=== PATIENT | female | born 1945 | race Caucasian/White ===

== ENCOUNTER → 2016-12-03 | Outpatient (CLI) | payer MEDICARE ==
--- NOTE | 2016-12-03 16:29 | CARD ---
APPROVED REPORT EXAM: Two-dimensional and M-mode echocardiogram with Doppler and color Doppler. Other Information Quality : Average Rhythm : Atrial Fibrillation INDICATION Atrial Fibrillation 2D DIMENSIONS RVDd2.2 (2.9-3.5cm)Left Atrium(2D)4.0 (1.6-4.0cm) IVSd1.0 (0.7-1.1cm)Aortic Root(2D)3.0 (2.0-3.7cm) LVDd4.8 (3.9-5.9cm)LVOT Diameter2.0 (1.8-2.4cm) PWd1.0 (0.7-1.1cm)LVDs3.4 (2.5-4.0cm) FS (%) 29.6 %SV60.8 ml LVEF(%)56.5 (>50%) Aortic Valve AoV Peak Marc.133.6cm/sAoV VTI24.5cm AO Peak GR.7.1mmHgLVOT Peak Marc.114.2cm/s AO Mean GR.4mmHgAVA (VMAX)2.62cm2 RAQUEL (VTI)2.70cm2 Mitral Valve MV E Ysldqmcj974.8cm/sMV E Peak Gr.6mmHg MV DECEL [id number] A Velocity1.7cm/s MV E Mean Gr.3mmHgMV RLI19yi E/A Ratio66.4MVA (PHT)4.36cm2 Tricuspid Valve TR P. Odqovxtc521yo/sRAP JNCVELJQ2uyWl TR Peak Gr.03uqAoYAPH90eiQo LEFT VENTRICLE The left ventricle is normal size. There is normal left ventricular wall thickness. Left ventricle sy stolic function is normal. The Ejection Fraction is 55-60%. There is normal LV segmental wall motion. Unable to assess diastolic function due to a-fib. RIGHT VENTRICLE The right ventricle is normal size. The right ventricular systolic function is normal. ATRIA The left atrium is mildly dilated. The right atrium size is normal. The interatrial septum is intact with no evidence for an atrial septal defect or patent foramen ovale as noted on 2-D or Doppler imagi ng. AORTIC VALVE The aortic valve is normal in structure and function. The aortic valve is trileaflet. Doppler and Col or Flow revealed no significant aortic regurgitation. There is no significant aortic valvular stenosi s. MITRAL VALVE The mitral valve is normal in structure and function. There is no mitral valve stenosis. Doppler and Color Flow revealed trace mitral valve regurgitation. TRICUSPID VALVE The tricuspid valve is normal in structure and function. Doppler and Color Flow revealed trace tricus pid regurgitation. The PA pressure was estimated at 25 mmHg. There is no tricuspid valve stenosis. PULMONIC VALVE The pulmonic valve is not well visualized. Doppler and Color Flow revealed no pulmonic valvular regur gitation. There is no pulmonic valvular stenosis. GREAT VESSELS The aortic root is normal in size. The IVC is normal in size and collapses >50% with inspiration. PERICARDIAL EFFUSION There is no evidence of significant pericardial effusion. Critical Notification Critical Value: No <Conclusion> Left ventricle systolic function is normal. The Ejection Fraction is 55-60%. There is normal LV segmental wall motion. The left atrium is mildly dilated. Trace tricuspid regurgitation. The PA pressure was estimated at 25 mmHg. There is no evidence of significant pericardial effusion.
== END | disposition home or self-care (01) ==
LOC: ECHO 13:00
PROVIDERS: ATTEND Internal Medicine Cardiovascular Disease
DX: I48.91 Unspecified atrial fibrillation (principal); I34.0 Nonrheumatic mitral (valve) insufficiency; I07.1 Rheumatic tricuspid insufficiency
CPT/HCPCS: 93306

== ENCOUNTER → 2017-03-29 | Outpatient (CLI) | payer MEDICARE ==
--- NOTE | 2017-03-29 16:31 | RAD ---
Ankle-brachial indices, 03/29/2017: History: Claudication Resting ROSALIA measurements were obtained. The right ROSALIA is 1.07, while the left ROSALIA is 1.08. IMPRESSION: Normal resting ROSALIA measurements.
== END | disposition home or self-care (01) ==
LOC: US 15:14
PROVIDERS: ATTEND Family Medicine
DX: I73.9 Peripheral vascular disease, unspecified (principal)
CPT/HCPCS: 93922

== ENCOUNTER → 2017-04-22 | Outpatient (CLI) | payer MEDICARE ==
--- NOTE | 2017-04-22 13:46 | RAD ---
DATE: 04/22/2017 EXAM: DIGITAL DIAGNOSTIC LT HISTORY: Six-month follow-up of nodular density in the left breast. COMPARISON: 10/18/2016 This study was interpreted with the benefit of Computerized Aided Detection (CAD). FINDINGS: CC and MLO digital mammograms of the left breast were obtained. Comparison studies are dated 10/18/2016, 10/22/2016 and 10/13/2015 . The left breast parenchyma is composed of scattered fibroglandular densities which can obscure a lesion on mammography (breast density code B). The asymmetric density is seen within the medial aspect left breast is unchanged. It has a benign appearance. No spiculated mass is noted. Benign-appearing calcifications are seen in the left breast, unchanged. Since the previous examinations there has been no significant interval change. IMPRESSION: Stable mammographic appearance of the benign-appearing asymmetric density within the left breast. I would recharacterize the patient's mammogram as a BIRADS category 2 benign findings with a recommendation for routine yearly screening mammography for follow-up. BI-RADS CATEGORY: 2 BENIGN FINDING(S) RECOMMENDED FOLLOW-UP: 12M 12 MONTH FOLLOW-UP PQRS compliance statement: Patient information was entered into a reminder system with a target due date 10/18/2017 for the next mammogram. Mammography is a sensitive method for finding small breast cancers, but it does not detect them all and is not a substitute for careful clinical examination. A negative mammogram does not negate a clinically suspicious finding and should not result in delay in biopsying a clinically suspicious abnormality. "Our facility is accredited by the [employer] Mammography Program."
== END | disposition home or self-care (01) ==
LOC: MAMMO 13:03
PROVIDERS: ATTEND Family Medicine
DX: R92.8 Other abnormal and inconclusive findings on diagnostic imaging of breast (principal); N64.89 Other specified disorders of breast
CPT/HCPCS: G0206; 77065

== ENCOUNTER 2017-04-29 07:57 | Outpatient (CLI) | payer MEDICARE ==
[2017-04-29] VITALS (9 sets, daily range): BP systolic 151–192; BP diastolic 63–74
[~2017-04-29] VITALS: Ht 166.4 cm; Wt 95.3 kg
[2017-04-29 08:19] LABS: HEMATOCRIT 42.4 % (36.0-47.0); HEMOGLOBIN 13.5 g/dL (12.0-15.5); RED BLOOD COUNT 4.72 x10^6/uL (3.50-5.40); RED CELL DISTRIBUTION WIDTH 14.8 % (11.5-14.5); WHITE BLOOD COUNT 6.8 x10^3/uL (4.0-11.0)
[2017-04-29 08:31] LABS: PROTHROMBIN TIME PATIENT 12.8 SEC (11.7-14.0)
[2017-04-29 08:32] LABS: CALCIUM 9.1 mg/dL (8.5-10.1); CREATININE 1.1 mg/dL (0.6-1.0); GFR 48.8; POTASSIUM 4.5 mmol/L (3.5-5.1)
[2017-04-29] MEDS ORDERED: LISI1TAB5 PO (08:46)
[2017-04-29] MEDS ORDERED: FLEC100T PO (08:46)
[2017-04-29] MEDS ORDERED: APIX5TAB PO (08:46)
[2017-04-29] MEDS ORDERED: GLUC100018 PO (08:46)
[2017-04-29] MEDS ORDERED: LEVO100T5 PO (08:46)
[2017-04-29] MEDS ORDERED: ASPI-482 PO (08:46)
[2017-04-29] MEDS ORDERED: DOCU-150 PO (08:46)
[2017-04-29] MEDS ORDERED: DIAZ2TAB PO (08:46)
[2017-04-29] MEDS ORDERED: METO50TA2 PO (08:46)
[2017-04-29] MEDS ORDERED: SIMV40TA3 PO (08:46)
[2017-04-29] MEDS ORDERED: MULT-245 PO (08:46)
[2017-04-29] MEDS ORDERED: IODIXANOL 320 MG/ML 100 ML VIAL. ONE (08:51)
[2017-04-29] MEDS ORDERED: LIDOCAINE 2% 20 ML VIAL. ONE (08:51)
[2017-04-29] MEDS ORDERED: HEPARIN for IV BOLUS 10,000 UNIT/10 ML VIAL. ONE (09:10)
[2017-04-29] MEDS ORDERED: fentaNYL PF VIAL 100 MCG/2 ML VIAL ONE ×2 (09:10→09:43)
[2017-04-29] MEDS ORDERED: MIDAZOLAM HCL/PF 2 MG/2 ML VIAL. ONE ×2 (09:10→09:43)
[2017-04-29] MEDS ORDERED: MIDAZOLAM HCL/PF 2 MG/2 ML VIAL. IV ONE (09:30)
[2017-04-29] MEDS ORDERED: LIDOCAINE 1% / SOD BICARB 8.4% 20 ML VIAL. IJ ONE (09:30)
[2017-04-29] MEDS ORDERED: IODIXANOL 320 MG/ML 100 ML VIAL. IART ONE (09:30)
[2017-04-29] MEDS ORDERED: fentaNYL PF VIAL 100 MCG/2 ML VIAL IV ONE (09:30)
[2017-04-29] MEDS ORDERED: IV 1/2 NORMAL SALINE 1,000 ML IV SCH (10:32)
--- NOTE | 2017-04-29 10:32 | PDOC ---
MODERATE SEDATION ASSESSMENT RISKS/ALTERNATIVES Risks/Alternatives Risks and alternatives of this type of sedation and procedure discussed with: RISK/ALTERNATIVES: Patient H & P ON CHART H & P H & P on chart and reviewed for co-morbid conditions and appropriate labs. H&P ON CHART: Yes STATUS PREG STATUS ASSESSED: N/A MEDS/ALLERGIES REVIEWED Meds/Allergies Reviewed Medications and Allergies including time and route of recently administered narcotics and sedatives. MEDS/ALLERGIES REVIEWED: Yes ASA RATING ASA RATING: II AIRWAY ASSESSMENT Airway Assessment Airway patency, oral function limitations, presence of caps, crowns, dentures, partials, and ability to extend neck assessed. AIRWAY ASSESSMENT: Yes MALLAMPATI SCORE MALLAMPATI SCORE: II PRE-SEDATION ASSESSMENT PRE-SEDATION ASSESSMENT: Yes CHRIS GUERRERO MD Apr 29, 2017 10:32
--- NOTE | 2017-04-29 13:40 | CARD ---
APPROVED REPORT Patient StatusOUT-PATIENT Bilingual Student Tutor: Ghulam Ordonez, RT (R) Procedure(s) performed: Aortogram with bilateral lower extremity runoff Sedation time: 27 minutes INDICATION FOR PROCEDURE The indication(s) include : Bilateral claudication. PROCEDURE NARRATIVE After explaining the risks, benefits and alternative options, informed consent was obtained from azeb ent. Patient brought to the cardiac [facility] [facility] and her right groin was prepped and draped in the usual fashion. 20 mL of 2% lidocaine was infiltrated into the skin and subcutaneous tissues for local anest hesia. Arterial access was obtained the right common femoral artery and a 5 Trin[place] sheath was inserte d. 5 Trin[place] pigtail catheter was then used to perform aortogram with bilateral lower extremity runoff . Patient tolerated the procedure well. Hemostasis was achieved using Angio-Seal. There were no immed iate complications. FINDINGS 1. No significant stenosis involving the distal descending aorta, bilateral common and external gemma c arteries. 2. No significant stenosis involving bilateral common femoral and superficial femoral arteries. 3. No significant stenosis involving bilateral popliteal arteries. There is three vessel runoff belo w the knee bilaterally. Conclusion No significant peripheral vascular disease
== END 2017-04-29 12:51 | disposition home or self-care (01) ==
LOC: CCL 07:57
PROVIDERS: ATTEND Internal Medicine Cardiovascular Disease
DX: I70.213 Atherosclerosis of native arteries of extremities with intermittent claudication, bilateral legs (principal); Z79.01 Long term (current) use of anticoagulants; E78.00 Pure hypercholesterolemia, unspecified; I48.91 Unspecified atrial fibrillation; I10 Essential (primary) hypertension; M19.90 Unspecified osteoarthritis, unspecified site; F17.200 Nicotine dependence, unspecified, uncomplicated; Z90.710 Acquired absence of both cervix and uterus; Z88.2 Allergy status to sulfonamides
CPT/HCPCS: 36415; 75630; 80048; 85027; 85610; 85730; 99152; 99153; C1769; C1771; C1892; G0269; J1644; J2250; J3010; Q9967

== ENCOUNTER → 2018-01-17 | Outpatient (CLI) | payer MEDICARE | END | disposition home or self-care (01) | LOC: KCIC MRI 07:45 | DX: S83.242A Other tear of medial meniscus, current injury, left knee, initial encounter (principal); M17.12 Unilateral primary osteoarthritis, left knee; M71.22 Synovial cyst of popliteal space [Baker], left knee; M22.42 Chondromalacia patellae, left knee; M25.462 Effusion, left knee; I10 Essential (primary) hypertension; E78.00 Pure hypercholesterolemia, unspecified; R60.0 Localized edema; X58.XXXA Exposure to other specified factors, initial encounter; Y93.89 Activity, other specified; Y92.89 Other specified places as the place of occurrence of the external cause; Y99.8 Other external cause status | CPT/HCPCS: 73721 ==

== ENCOUNTER → 2018-05-02 | Outpatient (CLI) | payer MEDICARE ==
[2017-04-29 12:00] VITALS: BP 170/67
[~2018-05-02] MED LIST: APIX5TAB PO; ASPI-482 PO; DIAZ2TAB PO; DOCU-150 PO; FLEC100T PO; GLUC100018 PO; LEVO100T5 PO; LISI1TAB5 PO; METO50TA6 PO; MULT-245 PO; SIMV40TA3 PO
--- NOTE | 2018-05-06 08:51 | RAD ---
DATE: 05/02/2018 10:30 AM EXAM: MAMMO EARL SCREENING BILATERAL HISTORY: routine screening evaluation. COMPARISON: 04/22/2017, 10/22/2016, 10/18/2016, 10/13/2015, 10/11/2014, 10/12/2013, 2012, 09/24/2011, 09/22/2010 Bilateral CC and MLO views of the breasts were performed. Bilateral breast tomosynthesis was performed in CC and MLO projections. This study was interpreted with the benefit of Computerized Aided Detection (CAD ). Breast Density: The breast parenchyma shows scattered fibroglandular densities. Breast parenchyma level B. FINDINGS: Benign calcifications are present. Asymmetry is seen in the superior right breast at a posterior depth, not definitively seen on the cc view. No left breast suspicious masses, microcalcifications or architectural distortion is present. The visualized axillae are unremarkable. IMPRESSION: Right breast asymmetry, findings for which additional imaging is advised. BI-RADS CATEGORY: 0 INCOMPLETE: NEEDS ADDITIONAL IMAGING EVALUATION AND/OR PRIOR MAMMOGRAMS FOR COMPARISON. RECOMMENDED FOLLOW-UP: ADD ADDITIONAL IMAGING The patient will be contacted to return for additional imaging and a supplemental report will follow. Recommend spot compression tomographic views and possibly ultrasound. PQRS compliance statement: Patient information was entered into a reminder system with a target due date for the next mammogram. Mammography is a sensitive method for finding small breast cancers, but it does not detect them all and is not a substitute for careful clinical examination. A negative mammogram does not negate a clinically suspicious finding and should not result in delay in biopsying a clinically suspicious abnormality. "Our facility is accredited by the [employer] Mammography Program." MTDD
== END | disposition home or self-care (01) ==
LOC: MAMMO 08:22
PROVIDERS: ATTEND Family Medicine
DX: Z12.31 Encounter for screening mammogram for malignant neoplasm of breast (principal); I10 Essential (primary) hypertension; E78.00 Pure hypercholesterolemia, unspecified; Z90.710 Acquired absence of both cervix and uterus
CPT/HCPCS: 77063; 77067

== ENCOUNTER → 2018-05-16 | Outpatient (CLI) | payer MEDICARE ==
[2017-04-29 12:00] VITALS: BP 170/67
--- NOTE | 2018-05-16 11:24 | RAD ---
DATE: 05/16/2018 EXAM: DIGITAL DIAGNOSTIC RT, BREAST RIGHT HISTORY: Suspicious screening study COMPARISON: 05/02/2018 This study was interpreted with the benefit of Computerized Aided Detection (CAD). The breast parenchyma shows scattered fibroglandular densities. Breast parenchyma level B. FINDINGS: A spot compression oblique view of the area of concern seen on the screening study demonstrates normal heterogeneous fibroglandular shadows. No discrete breast mass is seen. The current straight mediolateral tomosynthesis images as well as the prior MLO tomosynthesis images demonstrate only a small elongated opacity at the 11-12 o'clock location posteriorly. This is best seen on ML tomosynthesis images #27. The previous cc tomograms did not demonstrate a discrete mass. Right breast ultrasound, 05/16/2018: A targeted ultrasound exam of the right breast was performed at the 11-12 o'clock location. At the 11:00 location there is a smooth elongated cystic-appearing structure measuring 7 x 6 x 2 mm. No definite posterior acoustic enhancement or shadowing is seen. No internal vascularity is evident. It is wider than tall. It has a benign appearance. It probably corresponds to the mammographic findings. No other abnormality is seen in this region. IMPRESSION: Probably benign right breast nodule as described above. Surveillance consisting of follow-up right mammograms and targeted right breast ultrasound in 6 months is suggested. BI-RADS CATEGORY: 3 PROBABLY BENIGN FINDING(S)-SHORT INTERVAL FOLLOW-UP SUGGESTED RECOMMENDED FOLLOW-UP: 6M 6 MONTH FOLLOW-UP PQRS compliance statement: Patient information was entered into a reminder system with a target due date for the next mammogram. Mammography is a sensitive method for finding small breast cancers, but it does not detect them all and is not a substitute for careful clinical examination. A negative mammogram does not negate a clinically suspicious finding and should not result in delay in biopsying a clinically suspicious abnormality. "Our facility is accredited by the [employer] Mammography Program."
== END | disposition home or self-care (01) ==
LOC: US 10:00
PROVIDERS: ATTEND Family Medicine
DX: R92.8 Other abnormal and inconclusive findings on diagnostic imaging of breast (principal); I10 Essential (primary) hypertension; E78.00 Pure hypercholesterolemia, unspecified; M17.12 Unilateral primary osteoarthritis, left knee; Z87.891 Personal history of nicotine dependence; Z90.710 Acquired absence of both cervix and uterus; Z88.2 Allergy status to sulfonamides
CPT/HCPCS: 76641; 77065

== ENCOUNTER → 2018-11-10 | Outpatient (CLI) | payer MEDICARE ==
[2017-04-29 12:00] VITALS: BP 170/67
--- NOTE | 2018-11-10 13:11 | RAD ---
DATE: November 10, 2018 EXAM: MAMMO EARL DIAG RT, BREAST RIGHT SONOGRAM HISTORY: Follow-up of nodular area of upper posterior right breast. COMPARISON: Mammogram dated May 02, 2018 and sonogram dated May 16, 2018. 2-D digital mammographic views of the right breast were performed in the CC and MLO projections. 3-D digital tomosynthesis images of the right breast were performed in the CC and MLO projections and reviewed on a computer workstation. This study was interpreted with the benefit of Computerized Aided Detection (CAD). FINDINGS: Breast Density: SCATTERED The breast parenchyma shows scattered fibroglandular densities. Breast parenchyma level B. The previously seen density of the upper posterior aspect of the right breast seen in the MLO projection is not evident today. There are no new dominant suspicious masses, suspicious microcalcifications or evidence of architectural distortion. RIGHT BREAST SONOGRAPHY: High-resolution sonography of the upper aspect of the right breast was performed. At the 11:00 position 8 cm from the nipple, a small elongated hypoechoic area is seen measuring 4 mm in size. This corresponds to the previous sonographic finding and has decreased in size consistent with a benign finding. IMPRESSION: Benign finding of the right breast. Recommend return to yearly screening mammography in 6 months i.e. screening on the left side. BI-RADS CATEGORY: 2 BENIGN FINDING RECOMMENDED FOLLOW-UP: 6M 6 MONTH FOLLOW-UP PQRS compliance statement: Patient information was entered into a reminder system with a target due date May 03, 2019 for the next mammogram. Mammography is a sensitive method for finding small breast cancers, but it does not detect them all and is not a substitute for careful clinical examination. A negative mammogram does not negate a clinically suspicious finding and should not result in delay in biopsying a clinically suspicious abnormality. "Our facility is accredited by the [employer] Mammography Program." The patient's breast density may affect the ability of mammography to detect breast cancer. There are 4 categories of breast density, A, B, C and D. Breast density A means that most of the breast tissue is replaced with adipose tissue and therefore is not dense. Breast density B means that the breast tissue is mildly dense and scattered. Breast density C means that the breast tissue is heterogeneously dense. Breast density D means that the breast tissue is very dense. Breast densities especially C and D may decrease the sensitivity of mammography to detect breast cancer. Therefore, the patient may benefit from 3-D breast mammography (3D breast tomography) as a part of their screening mammogram. Insurance may or may not pay for this additional imaging. The patient's breast density based on today's mammogram is category B.
== END | disposition home or self-care (01) ==
LOC: MAMMO 09:28
PROVIDERS: ATTEND Surgery
DX: R92.8 Other abnormal and inconclusive findings on diagnostic imaging of breast (principal)
CPT/HCPCS: 76641; 77065; G0279; 77061

== ENCOUNTER → 2018-12-17 | Outpatient (CLI) | payer MEDICARE ==
[2017-04-29 12:00] VITALS: BP 170/67
--- NOTE | 2018-12-17 11:22 | CARD ---
MR#: [id number] Date of Study: 12/17/2018 Ordering Physician: CHRIS GUERRERO, Referring Physician: CHRIS GUERRERO Tech: Alley Arboleda RDCS APPROVED REPORT EXAM: Two-dimensional and M-mode echocardiogram with Doppler and color Doppler. Other Information Quality : Good INDICATION Atrial Fibrillation 2D DIMENSIONS RVDd3.0 (2.9-3.5cm)Left Atrium(2D)4.2 (1.6-4.0cm) IVSd1.1 (0.7-1.1cm)Aortic Root(2D)3.0 (2.0-3.7cm) LVDd4.9 (3.9-5.9cm)LVOT Diameter2.0 (1.8-2.4cm) PWd1.1 (0.7-1.1cm)LVDs2.4 (2.5-4.0cm) FS (%) 30.0 %SV92.7 ml LVEF(%)60.0 (>50%) Aortic Valve AoV Peak Marc.136.0cm/sAoV VTI30.5cm AO Peak GR.7.4mmHgLVOT Peak Marc.128.2cm/s AO Mean GR.4mmHgAVA (VMAX)3.06cm2 RAQUEL (VTI)3.20cm2 Mitral Valve MV E Ufxpguuk571.3cm/sMV DECEL [id number] MV A Ummhnhzh20.5cm/sE/A Ratio2.7 Tricuspid Valve TR P. Yqouaaaf465ob/sRAP LPKLNMCF8foYs TR Peak Gr.17sqXyVXSI59mxNu Pulmonary Vein S1 Gymjsnhe75.0cm/sD2 Zkxtfdsc31.8cm/s LEFT VENTRICLE The left ventricle is normal size. There is normal left ventricular wall thickness. The left ventricu lar systolic function is normal and the ejection fraction is within normal range. The Ejection Fracti on is 55-60%. There is normal LV segmental wall motion. Transmitral Doppler flow pattern is Grade II- pseudonormal filling dynamics. RIGHT VENTRICLE The right ventricle is normal size. The right ventricular systolic function is normal. ATRIA The left atrium is mildly dilated. The right atrium size is normal. The interatrial septum is intact with no evidence for an atrial septal defect or patent foramen ovale as noted on 2-D or Doppler imagi ng. AORTIC VALVE The aortic valve is calcified but opens well. Doppler and Color Flow revealed no significant aortic r egurgitation. There is no significant aortic valvular stenosis. MITRAL VALVE The mitral valve is calcified but opens well. There is no evidence of mitral valve prolapse. There is no mitral valve stenosis. Doppler and Color-flow revealed mild mitral regurgitation. TRICUSPID VALVE The tricuspid valve is normal in structure and function. Doppler and Color Flow revealed trace tricus pid regurgitation. The PA pressure was estimated at 30 mmHg. There is no tricuspid valve stenosis. PULMONIC VALVE The pulmonic valve is not well visualized. Doppler and Color Flow revealed no pulmonic valvular regur gitation. There is no pulmonic valvular stenosis. GREAT VESSELS The aortic root is normal in size. The ascending aorta is mildly dilated at 3.7 cm. The IVC is normal in size and collapses >50% with inspiration. PERICARDIAL EFFUSION There is no evidence of significant pericardial effusion. Critical Notification Critical Value: No <Conclusion> The left ventricle is normal size. The left ventricular systolic function is normal and the ejection fraction is within normal range. The Ejection Fraction is 55-60%. There is no significant aortic valvular stenosis. Doppler and Color Flow revealed no significant aortic regurgitation. Doppler and Color-flow revealed mild mitral regurgitation. Doppler and Color Flow revealed trace tricuspid regurgitation. The PA pressure was estimated at 30 mmHg. The ascending aorta is mildly dilated at 3.7 cm. Signed by : Luis Alberto Ruiz MD Electronically Approved : 12/17/2018 11:21:38
== END | disposition home or self-care (01) ==
LOC: ECHO 08:56
PROVIDERS: ATTEND Internal Medicine Cardiovascular Disease
DX: I34.0 Nonrheumatic mitral (valve) insufficiency (principal); I48.91 Unspecified atrial fibrillation
CPT/HCPCS: 93306

== ENCOUNTER → 2019-05-04 | Outpatient (CLI) | payer MEDICARE ==
[2017-04-29 12:00] VITALS: BP 170/67
--- NOTE | 2019-05-04 14:52 | RAD ---
DATE: 05/04/2019. EXAM: MAMMO EARL SCREENING BILATERAL HISTORY: Routine screening. COMPARISON: Previous mammogram from 2018. This study was interpreted with the benefit of Computerized Aided Detection (CAD). FINDINGS: Breast Density: SCATTERED The breast parenchyma shows scattered fibroglandular densities. Breast parenchyma level B. The skin and nipples are within normal limits. No suspicious ossifications, spiculated mass or area of architectural distortion. Benign-appearing bilateral calcifications. IMPRESSION: No mammographic evidence of malignancy. BI-RADS CATEGORY: 2 BENIGN FINDING(S) RECOMMENDED FOLLOW-UP: 12M 12 MONTH FOLLOW-UP PQRS compliance statement: Patient information was entered into a reminder system with a target due date for the next mammogram. Mammography is a sensitive method for finding small breast cancers, but it does not detect them all and is not a substitute for careful clinical examination. A negative mammogram does not negate a clinically suspicious finding and should not result in delay in biopsying a clinically suspicious abnormality. "Our facility is accredited by the [employer] Mammography Program."
== END | disposition home or self-care (01) ==
LOC: MAMMO 12:21
PROVIDERS: ATTEND Family Medicine
DX: Z12.31 Encounter for screening mammogram for malignant neoplasm of breast (principal); N64.89 Other specified disorders of breast
CPT/HCPCS: 77063; 77067

== ENCOUNTER → 2019-08-21 | Outpatient (CLI) | payer MEDICARE ==
[2017-04-29 12:00] VITALS: BP 170/67
[~2019-08-21] MED LIST changes: +LISI1TAB19 PO; -LISI1TAB5 PO; +SIMV40TA18 PO; -SIMV40TA3 PO
--- NOTE | 2019-08-21 10:07 | KCIC ---
MRI right knee without contrast dated 08/21/2019. No comparison available. Clinical data indication: Right knee pain. TECHNIQUE: Routine multiplanar multisequence MR imaging performed. FINDINGS: Moderate tricompartmental hypertrophic change with prominent marginal osteophytes. Thinning and surface irregularity of the articular cartilage throughout. Broad zones of full-thickness cartilage loss of the weightbearing surfaces medial femoral condyle and medial tibial plateau. There is also full-thickness cartilage loss of the lateral tibial plateau with subchondral cystic changes. Full-thickness cartilage loss is also noted at the lateral patellar facet and lateral femoral trochlea and medial femoral trochlea and patellar apex. There is a small joint effusion. Small popliteal cyst. No intra-articular loose body. Anterior cruciate and posterior cruciate ligaments intact. Medial and lateral collateral complexes intact. Iliotibial band, popliteus tendon and pes anserine complex within normal limits. Quadriceps and patellar tendon are intact. No abnormality of the medial or lateral retinaculum. Small prepatellar bursal fluid collection. Mild lateral patellar subluxation with tibial tubercle to trochlear groove distance estimated at about 1.2 cm. Complex tear posterior horn of medial meniscus with blunting of the free joint and increased signal in the meniscal substance. There is also blunted morphology of the medial meniscal body which appears extruded in the medial gutter. Complex signal at the anterior horn. There is significant blunting of the anterior horn/body of lateral meniscus with little visible meniscal tissue. Blunted morphology of the lateral meniscal body and posterior horn. IMPRESSION: 1. 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 There is full-thickness cartilage loss in all 3 knee compartments. 2. Severe degenerative tearing of the medial and lateral meniscus as described. 3. Small joint effusion and small popliteal cyst. 4. Mild prepatellar bursitis. Electronically signed by: Nicholas Costello MD (08/21/2019 10:04 AM) [facility]
== END | disposition home or self-care (01) ==
LOC: KCIC MRI 08:59
PROVIDERS: ATTEND Nurse Practitioner Family
DX: S83.241A Other tear of medial meniscus, current injury, right knee, initial encounter (principal); S83.281A Other tear of lateral meniscus, current injury, right knee, initial encounter; M94.261 Chondromalacia, right knee; M25.761 Osteophyte, right knee; M25.461 Effusion, right knee; M71.21 Synovial cyst of popliteal space [Baker], right knee; X58.XXXA Exposure to other specified factors, initial encounter; Y93.89 Activity, other specified; Y92.89 Other specified places as the place of occurrence of the external cause; Y99.8 Other external cause status
CPT/HCPCS: 73721

== ENCOUNTER → 2020-02-16 | Outpatient (CLI) | payer MEDICARE ==
[2017-04-29 12:00] VITALS: BP 170/67
[~2020-02-16] MED LIST changes: +AMIO200T4 PO; +CALC60OI2 TP; +LISI1TAB20 PO; +METO50TA4 PO; +SIMV20TA18 PO; +tylenol pm PO
== END | disposition home or self-care (01) ==
LOC: LAB 13:26
PROVIDERS: ATTEND Internal Medicine Cardiovascular Disease
DX: I49.5 Sick sinus syndrome (principal); Z20.828 Contact with and (suspected) exposure to other viral communicable diseases
CPT/HCPCS: 36415; U0003-CS

== ENCOUNTER → 2020-05-18 | Outpatient (CLI) | payer MEDICARE ==
[2020-02-20 10:28] VITALS: BP 138/64
[~2020-05-18] MED LIST changes: -LISI1TAB19 PO; +LISI1TAB37 PO
--- NOTE | 2020-05-19 10:38 | RAD ---
DATE: 05/18/2020 10:40 AM EXAM: MAMMO EARL SCREENING BILATERAL HISTORY: Screening COMPARISON: 05/04/2019, 05/02/2018 Bilateral CC and MLO views of the breasts were performed. Bilateral breast tomosynthesis was performed in CC and MLO projections. This study was interpreted with the benefit of Computerized Aided Detection (CAD). FINDINGS: Breast Density: SCATTERED The breast parenchyma shows scattered fibroglandular densities. Breast parenchyma level B No suspicious masses, microcalcifications or architectural distortion is present to suggest malignancy in either breast. The visualized axillae are unremarkable. IMPRESSION: No mammographic evidence of malignancy. BI-RADS CATEGORY: 1 NEGATIVE RECOMMENDED FOLLOW-UP: 12M 12 MONTH FOLLOW-UP Annual screening mammography is recommended, unless clinically indicated sooner based on symptoms or change in physical exam. PQRS compliance statement: Patient information was entered into a reminder system with a target due date for the next mammogram. Mammography is a sensitive method for finding small breast cancers, but it does not detect them all and is not a substitute for careful clinical examination. A negative mammogram does not negate a clinically suspicious finding and should not result in delay in biopsying a clinically suspicious abnormality. "Our facility is accredited by the [employer] Mammography Program."
== END | disposition home or self-care (01) ==
LOC: MAMMO 10:20
PROVIDERS: ATTEND Family Medicine
DX: Z12.31 Encounter for screening mammogram for malignant neoplasm of breast (principal)
CPT/HCPCS: 77063; 77067

== ENCOUNTER → 2020-08-15 | Outpatient (CLI) | payer MEDICARE ==
[2020-02-20 10:28] VITALS: BP 138/64
[~2020-08-15] MED LIST changes: -AMIO200T4 PO; +AMIO200T6 PO; +OXYC5TAB4 PO; +TRAM50TA PO
[2020-08-15 09:32] LABS: BASO % 1 % (0-3); EOS # 0.3 x10^3/uL (0.0-0.7); EOS % 6 % (0-3); HEMATOCRIT 44.4 % (36.0-47.0); HEMOGLOBIN 14.3 g/dL (12.0-15.5); LYMPH # 1.6 x10^3/uL (1.0-4.8); LYMPH % 31 % (24-48); MEAN CORPUSCULAR HEMOGLOBIN 29 pg (25-35); MEAN CORPUSCULAR HGB CONC 32 g/dL (31-37); MEAN CORPUSCULAR VOLUME 91 fL (79-100); MONO # 0.3 x10^3/uL (0.0-1.1); MONO % 7 % (0-9); NEUT # 2.8 x10^3/uL (1.8-7.7); NEUT % 56 % (31-73); PLATELET COUNT 294 x10^3/uL (140-400); RED BLOOD COUNT 4.89 x10^6/uL (3.50-5.40); RED CELL DISTRIBUTION WIDTH 13.9 % (11.5-14.5); WHITE BLOOD COUNT 5.1 x10^3/uL (4.0-11.0)
[2020-08-15 09:43] LABS: PROTHROMBIN TIME PATIENT 16.3 SEC (11.7-14.0)
[2020-08-15 09:54] LABS: ALBUMIN 3.7 g/dL (3.4-5.0); C-REACTIVE PROTEIN 0.9 mg/L (0-3.3); CALCIUM 9.8 mg/dL (8.5-10.1); CREATININE 1.2 mg/dL (0.6-1.0); GFR 43.7; POTASSIUM 3.9 mmol/L (3.5-5.1)
[2020-08-16 00:10] LABS: HEMOGLOBIN A1C 5.3 % (4.8-5.6)
== END ==
LOC: SURGPAT 12:40
PROVIDERS: ATTEND Orthopaedic Surgery
DX: Z01.812 Encounter for preprocedural laboratory examination (principal); M17.0 Bilateral primary osteoarthritis of knee; M25.562 Pain in left knee; M25.561 Pain in right knee; Z96.612 Presence of left artificial shoulder joint; I10 Essential (primary) hypertension; E78.00 Pure hypercholesterolemia, unspecified; Z79.899 Other long term (current) drug therapy; Z79.01 Long term (current) use of anticoagulants; Z87.891 Personal history of nicotine dependence
CPT/HCPCS: 36415; 80048; 82040; 82306; 83036; 85025; 85610; 85730; 86140; 87641

== ENCOUNTER → 2020-08-26 | Outpatient (CLI) | payer MEDICARE ==
[2020-08-19 12:14] VITALS: BP 156/90
[~2020-08-26] MED LIST changes: -OXYC5TAB4 PO; -TRAM50TA PO
== END ==
LOC: LAB 13:35
PROVIDERS: ATTEND Orthopaedic Surgery
DX: Z01.812 Encounter for preprocedural laboratory examination (principal); Z20.828 Contact with and (suspected) exposure to other viral communicable diseases
CPT/HCPCS: U0003

== ENCOUNTER 2020-08-30 07:00 | Inpatient (IN) | payer MEDICARE ==
[2020-08-30] VITALS (8 sets, daily range): BP systolic 92–110; BP diastolic 50–91
[~2020-08-30] VITALS: Ht 167.6 cm; Wt 88.9 kg
[~2020-08-30 07:00] MED LIST changes: +ACETAMINOPHEN 500 MG TABLET PO PRN; +GABAPENTIN 300 MG CAPSULE. PO PRN; +IV RINGERS,LACTATED 1000ML 1,000 ML IV SCH; +LIDOCAINE 1% PF 2 ML VIAL. ID PRN; +MELOXICAM 7.5 MG TABLET PO PRN; +MORPHINE SULFATE 5 MG, KETOROLAC 30MG VIAL 30 MG, ROPIVacaine 0.5% PF 60 ML, EPINEPHrin... INT ART ONE; +ONDANSETRON PF 4 MG/2 ML VIAL. IV PRN; +PROCHLORPERAZINE 10 MG/2 ML VIAL. IV PRN; +TRANEXAMIC ACID 1,000 MG in IV NS 50ML -- 1ST BAG INJ ONE; +fentaNYL PF VIAL 100 MCG/2 ML VIAL IV PRN
[2020-08-30] MEDS ORDERED: VANCOMYCIN 1 GM VIAL. ONE (07:23)
[2020-08-30] MEDS ORDERED: ZOLPIDEM 5 MG TABLET. PO PRN (07:45)
[2020-08-30] MEDS ORDERED: MORPHINE SULFATE 2 MG/ML VIAL. IVP PRN (07:45)
[2020-08-30] MEDS ORDERED: DEXTROSE 50% 25 GM / 50ML DISP.SYRIN. IV PRN (07:45)
[2020-08-30] MEDS ORDERED: PROCHLORPERAZINE 5 MG TABLET. PO PRN (07:45)
[2020-08-30] MEDS ORDERED: fentaNYL PF VIAL 100 MCG/2 ML VIAL IVP PRN (07:45)
[2020-08-30] MEDS ORDERED: 0.9 % SODIUM CHLORIDE 10 ML DISP.SYRIN. IV PRN (07:45)
[2020-08-30] MEDS ORDERED: diphenhydrAMINE 50 MG/ML VIAL IVP PRN (07:45)
[2020-08-30] MEDS ORDERED: IV NORMAL SALINE 1000ML BAG 1,000 ML IV SCH (07:45)
[2020-08-30] MEDS ORDERED: CALCIUM CARBONATE 500 MG TAB.CHEW PO PRN (07:45)
[2020-08-30] MEDS ORDERED: diazePAM 2 MG TABLET PO PRN (07:45)
--- NOTE | 2020-08-30 07:46 | HP ---
ADMIT DATE: 08/30/2020 CHIEF COMPLAINT: Bilateral knee pain, right way worse than left. HISTORY OF PRESENT ILLNESS: The patient has many years of pain in bilateral knees, right worse than left, and indicates that her most recent injections in April were no help at all. She is very limited in her activities of daily living as a result of the right knee pain and has some left knee pain increasingly worse and compensatory in nature. She is taking Eliquis for blood thinner. PAST MEDICAL HISTORY: Significant for atrial fibrillation, hypertension, hypercholesterolemia, arthritis. PAST SURGICAL HISTORY: Appendectomy, tonsil and adenoidectomy, hysterectomy, bladder suspension, and a pacemaker. FAMILY HISTORY: Emphysema in her father, heart failure in her mother, several siblings that are healthy and one sister a breast cancer survivor and a brother with heart disease. SOCIAL HISTORY: She is a former smoker, quit over 10 years ago. Occasional social alcohol use, denies drug use. MEDICATIONS: List is reviewed including Eliquis 5 mg twice daily. ALLERGIES: INCLUDE SULFA. REVIEW OF SYSTEMS: Negative for any chest pain, shortness of breath, recent febrile illness or constitutional symptoms. PHYSICAL EXAMINATION: VITAL SIGNS: Height 66 inches, weight 196 pounds. Vitals per admission sheet. HEENT: Atraumatic, normocephalic. HEART: Regular rate and rhythm. LUNGS: Clear to auscultation bilaterally. ABDOMEN: Benign. EXTREMITIES: Examination of bilateral knees shows more severe joint line tenderness and crepitus than on the left. The left has a little bit more varus deformity than the right. Ligaments are stable bilaterally. Normal alignment, stability, bilateral hips and ankles. X-rays including standing views of both knees show tricompartmental degenerative changes that are more severe on the right than the left involving primarily the medial compartment on the left. ASSESSMENT: Primary osteoarthritis of both knees, pain in right knee more than left. TREATMENT PLAN: I had previously gone over with her risks, benefits, postoperative course of total knee arthroplasty including the possibility of infection, continued pain, premature wear or loosening, medical or other anesthetic complications among others. She wishes to proceed with surgical evaluation and treatment of a total knee arthroplasty and plan [facility] observation to follow. ADRIAN CALIXTO MD DR: NOAH/jeff JOB#: [id number] / [id number] LAURA Park MD
[2020-08-30] MEDS ORDERED: fentaNYL PF VIAL 100 MCG/2 ML VIAL ONE ×3 (07:57→10:09)
[2020-08-30] MEDS ORDERED: PROPOFOL 10 MG/ML (20ML) VIAL. IV ONE (07:57)
[2020-08-30] MEDS ORDERED: DEXAMETHASONE SOD PHOS 4 MG/ML VIAL ONE (07:57)
[2020-08-30] MEDS ORDERED: ONDANSETRON PF 4 MG/2 ML VIAL. ONE (07:57)
[2020-08-30] MEDS ORDERED: LIDOCAINE 2% PF 5 ML VIAL. ONE (07:57)
[2020-08-30] MEDS ORDERED: TRANEXAMIC ACID 1,000 MG in IV NS 50ML -- 2ND BAG INJ ONE (08:00)
[2020-08-30] MEDS ORDERED: NON FORMULARY ITEM (Lisinopril/Hydrochlorothiazide (Lisinopril-Hctz 20-25 Mg Tab) 1 TAB) PO SCH (09:00)
[2020-08-30] MEDS ORDERED: AMIODARONE HCL 200 MG TABLET. PO SCH (09:00)
[2020-08-30] MEDS ORDERED: MORPHINE SULFATE 2 MG/ML VIAL. ONE (10:02)
[2020-08-30] MEDS: MORPHINE SULFATE 2 MG/ML VIAL. IV PRN ×2 (10:07→10:12)
[2020-08-30] MEDS: fentaNYL PF VIAL 100 MCG/2 ML VIAL IV PRN ×2 (10:12→10:20)
[2020-08-30] MEDS ORDERED: HYDROmorphone 2 MG/ML VIAL ONE (10:29)
[2020-08-30] MEDS: HYDROmorphone 2 MG/ML VIAL IV PRN ×4 (10:33→11:04)
--- NOTE | 2020-08-30 10:45 | PDOC4 ---
Operative Note Operative Note Date of surgery: 08/30/2020 Preoperative diagnosis: Degenerative joint disease right knee Postoperative diagnosis: Same Operative procedure: Right total knee arthroplasty Surgeon: Ling Anesthesia: General Estimated blood loss: 50 cc Complications: None Drains: Intra-articular pain catheter and Hemovac drain right knee Specimens: Articular surfaces to pathology Operative indications: Please see my previous clinic notes for detailed o perative indications and note that patient has failed nonoperative management for her degenerative change of the right knee and has severe pain affecting her activities of daily living. We had discussed total knee arthroplasty the possibility of infection instability premature wear or loosening nerve or blood vessel damage medical or other anesthetic complications among others. All her questions were answered she agrees to proceed with surgical evaluation and treatment. Operative text: Patient was identified procedure verified patient placed in the supine position on the operating table. After adequate amounts of general anesthesia were administered the right lower extremity was prepped and draped in standard sterile fashion with a thigh tourniquet. After timeout was performed patient procedure identified and verified the right lower extremity was exsanguinated by Esmarch bandage tourniquet inflated to 300 mmHg a midline incision was made with a mid vastus extending to a medial parapatellar approach, patella was everted fat pad was excised distal femur was drilled and distal femoral guide set at a standard cut and 5 degrees. External tibial cutting jig was aligned to the second toe and standard tibial cut was made and extension gap showed good alignment. Distal femoral guide was chosen for posterior referencing due to the lack of significant deformity. Based on measurements a s ize 7 distal femoral cutting block was placed in the appropriate rotation and AP and chamfer cuts were then made. Flexion extension gaps were balanced with a moderate medial release, a size E tibial component was placed drilled and broached and trial fitting carried out with a size 12 medial congruent tibial insert. Excellent stability range of motion and ligament balance was obtained. I elected not to resurface due to good remaining cartilage. Femoral lug holes were drilled trial components were removed bleeding points controlled by electrocautery after thorough irrigation with normal saline solution and the following Mishel persona components were cemented with polymethylmethacrylate cement: A right size E persona natural tibia component, a size 7 cruciate retaining standard right femoral component and a vitamin E medial congruent 12 mm height polyethylene articular surface locked in place. Thorough irrigation carried out normal saline solution excess cement was removed irrigation carried out with dilute Betadine followed by another liter of normal saline solution with pulse lavage. Hemovac drain and intra-articular catheter were placed intra-articular catheter mixture was injected throughout the joint capsule particular attention to around the periosteal surfaces 1 g vancomycin was placed in the joint and the retinacular closure accomplished with #1 PDS strata fix suture in a running fashion subcutaneous closure with buried 2-0 Vicryl suture subcuticular 3-0 strata fix Monocryl, and a ivanna dressing was placed. Patient was returned to recovery room in stable condition having tolerated the procedure well toes were noted to be warm pink following deflation of the tourniquet after total tourniquet time of less than 1 hour. ADRIAN CALIXTO MD Aug 30, 2020 10:45
--- NOTE | 2020-08-30 11:02 | RAD ---
EXAMINATION: XR KNEE_RT 1-2 VIEWS CLINICAL HISTORY: Postop evaluation right total knee arthroplasty TECHNIQUE: XR KNEE_RT 1-2 VIEWS Number of Images/Views: 2 COMPARISON: 04/25/2020 FINDINGS: Interval right total knee arthroplasty. Prostheses in satisfactory alignment with no evidence of hard cosby complication. Expected postsurgical changes in the surrounding soft tissues, including mild soft tissue and intra-articular emphysema. Surgical drain in the suprapatellar recess. IMPRESSION: Normal postoperative findings status post right total knee arthroplasty. Electronically signed by: Lebron Canales DO (08/30/2020 11:00 AM) [id number]
[2020-08-30] MEDS: ONDANSETRON PF 4 MG/2 ML VIAL. IVP SCH ×2 (11:30→17:05)
[2020-08-30] MEDS: ONDANSETRON ODT 4 MG TAB.RAPDIS. PO SCH ×2 (11:34→17:18)
[2020-08-30] MEDS: oxyCODONE IR 5 MG TABLET PO PRN ×2 (13:35→21:07)
[2020-08-30] MEDS: FERROUS SULFATE 325 MG TABLET. PO SCH (17:00)
[2020-08-30] MEDS: KETOROLAC 30MG VIAL 30 MG, BUPIVACAINE MPF 0.25% 20 ML, EPINEPHrine 0.5 MG in TOTAL VOL... INT ART SCH (17:25)
--- NOTE | 2020-08-30 17:32 | NUR ---
Patient arrived around 1125 in a bed from PACU. Family at bedside. She is very drowsy but able to be aroused when spoken to, states she is having some nausea with zofran given. IV infusing properly. RYAN wrap present on RLE with FABIO, hemovac, and IAC present. She is on 2L of oxygen per NC at admission. Will continue to monitor.
[2020-08-30] MEDS: SIMVASTATIN 20 MG TABLET PO SCH (21:05)
[2020-08-30] MEDS: APIXABAN 5 MG TABLET. PO SCH (21:05)
[2020-08-30] MEDS: DOCUSATE SODIUM 100 MG CAPSULE. PO SCH (21:05)
[2020-08-31] MEDS: oxyCODONE IR 5 MG TABLET PO PRN ×2 (02:37→07:46)
[2020-08-31 02:39] VITALS: BP 105/57
[2020-08-31] MEDS ORDERED: MAGNESIUM HYDROXIDE 2,400 MG/30 ML ORAL.SUSP. PO PRN (06:00)
[2020-08-31] MEDS: traMADol 50 MG TABLET PO SCH ×3 (06:06→17:28)
[2020-08-31] MEDS: GABAPENTIN 100 MG CAPSULE. PO SCH ×3 (06:07→20:55)
[2020-08-31] MEDS: ONDANSETRON ODT 4 MG TAB.RAPDIS. PO SCH ×2 (06:07)
[2020-08-31] MEDS: ONDANSETRON PF 4 MG/2 ML VIAL. IVP SCH ×2 (06:07)
[2020-08-31] MEDS: LEVOTHYROXINE 100 MCG TABLET PO SCH (06:07)
[2020-08-31 06:08] VITALS: BP 103/40
[2020-08-31] MEDS: KETOROLAC 30MG VIAL 30 MG, BUPIVACAINE MPF 0.25% 20 ML, EPINEPHrine 0.5 MG in TOTAL VOL... INT ART SCH (06:08)
[2020-08-31] MEDS: SENNOSIDES/DOCUSATE 8.6/50MG TABLET. PO SCH (07:43)
[2020-08-31] MEDS: ASPIRIN ENTERIC COATED 81 MG TABLET.DR. PO SCH (07:44)
[2020-08-31] MEDS: ACETAMINOPHEN 500 MG TABLET PO SCH ×3 (07:44→20:54)
[2020-08-31] MEDS: APIXABAN 5 MG TABLET. PO SCH ×2 (07:44→20:55)
[2020-08-31] MEDS: MELOXICAM 7.5 MG TABLET PO SCH (07:45)
[2020-08-31] MEDS: METOPROLOL SUCC 24HR ER 50 MG TAB.ER.24H. PO SCH (07:46)
[2020-08-31] MEDS: MULTIVITAMIN with MINERAL TABLET. PO SCH (07:46)
[2020-08-31] MEDS: DOCUSATE SODIUM 100 MG CAPSULE. PO SCH ×2 (07:46→20:55)
[2020-08-31] MEDS: AMIODARONE HCL 200 MG TABLET. PO SCH (07:47)
[2020-08-31] MEDS: FERROUS SULFATE 325 MG TABLET. PO SCH ×2 (07:47→17:29)
[2020-08-31] MEDS: hydroCHLOROthiazide 25 MG TABLET PO SCH (07:49)
[2020-08-31] MEDS: LISINOPRIL 20 MG TABLET PO SCH (07:50)
--- NOTE | 2020-08-31 09:04 | PDOC ---
PROGRESS NOTES Date of Service DATE: 08/31/20 TIME: 09:02 Subjective Subjective Problems overnight: Doing well and pain adequately controlled no other complaints Objective Vital Signs Vital Signs Date Time Temp Pulse Resp B/P (MAP) Pulse Ox O2 Delivery O2 Flow Rate FiO2 08/31/20 07:47 69 96/47 08/31/20 07:46 96 Room Air 08/31/20 07:02 18 08/31/20 06:08 97.8 97.8 08/30/20 14:45 2.0 Physical Exam Hemovac in pain catheter intact good ligamentous stability Roman dressing intact distal neurovascular status intact Imaging Postop x-rays show excellent alignment total knee arthroplasty Assessment Assessment POD#right total knee Plan Plan of Care Back on Eliquis anticoagulation 5 mg twice daily Plan for outpatient physical therapy on discharge when stable Justicifation of Admission Dx: Justifications for Admission: Justification of Admission Dx: N/A ADRIAN CALIXTO MD Aug 31, 2020 09:04
[2020-08-31 09:36] LABS: HEMATOCRIT 36.7 % (36.0-47.0); HEMOGLOBIN 11.9 g/dL (12.0-15.5)
[2020-08-31 10:00] VITALS: BP_SYST 100; BP_SYST 97; BP_DIAS 44; BP_DIAS 52
--- NOTE | 2020-08-31 10:59 | NUR ---
Patient this morning was having low BP upon assessment. 96/47 with a pulse of 69- patient in AFIB. Lisinopril and HCTZ held but patient still wanted to take her metoprolol for rate purposes. A little over a hour later her BP was rechecked and is remaining stable-see chart. No symptoms of orthostatic hypotension noted or low BP concerns. Will continue to monitor.
[2020-08-31] MEDS ORDERED: ONDANSETRON ODT 4 MG TAB.RAPDIS. PO PRN (12:00)
[2020-08-31] MEDS ORDERED: ONDANSETRON PF 4 MG/2 ML VIAL. IVP PRN (12:00)
[2020-08-31] MEDS ORDERED: BISACODYL 10 MG SUPP.RECT. PR PRN (16:00)
--- NOTE | 2020-08-31 16:13 | NUR ---
RYAN wrap removed over FABIO dressing after last therapy session. IAC and hemovac removed, foam dressing placed over site. Direct pressure held over sites once removed due to patient being on eliquis and aspirin. FABIO dressing CDI with no signs of drainage noted. Will continue to monitor.
[2020-08-31 18:04] VITALS: BP 92/45
[2020-08-31] MEDS: SIMVASTATIN 20 MG TABLET PO SCH (20:55)
[2020-09-01] MEDS: traMADol 50 MG TABLET PO SCH ×3 (00:28→12:22)
[2020-09-01 00:31] VITALS: BP 97/52
[2020-09-01] MEDS: ACETAMINOPHEN 500 MG TABLET PO SCH ×2 (03:20→08:04)
[2020-09-01 06:23] VITALS: BP 100/52
[2020-09-01] MEDS: GABAPENTIN 100 MG CAPSULE. PO SCH ×2 (06:26→14:00)
[2020-09-01] MEDS: LEVOTHYROXINE 100 MCG TABLET PO SCH (06:26)
--- NOTE | 2020-09-01 06:38 | DISCH ---
DISCHARGE INSTRUCTIONS Condition on Discharge Condition on Discharge: Stable Activity After Discharge Activity Instructions for Disc: Activity as tolerated Exercise Instruction after Dis: Progress as tolerated Driving Instructions after Dis: Other, see below Weight Bearing Status after Di: As tolerated Diet after Discharge Diet after Discharge: Cardiac Diet Texture: Regular Swallowing Supervision: None needed Wound Incision Care Wound/Incision Care: Do not change dressing (maintain dressing, call if satura dylan, when suction stops, cut tail and tape over to keep dressing sealed) Community/Resources/Services Services at Discharge: PT EVALUATE & TREAT (standard total knee protocol) Contacting the after DC Call your doctor for: Concerns you may have Follow-Up Follow up with: Dr. Dubon 2 weeks postop Treatment/Equipment after DC Adaptive Equipment Issued: None Warfarin Follow-Up Warfarin Follow UP: [facility] to direct dosage and testing ADRIAN DUBON MD Sep 01, 2020 06:38
[2020-09-01] MEDS ORDERED: OXYC5TAB4 PO (07:37)
[2020-09-01] MEDS ORDERED: TRAM50TA PO (07:37)
[2020-09-01] MEDS: oxyCODONE IR 5 MG TABLET PO PRN (07:54)
[2020-09-01] MEDS: DOCUSATE SODIUM 100 MG CAPSULE. PO SCH (07:56)
[2020-09-01] MEDS: MULTIVITAMIN with MINERAL TABLET. PO SCH (07:57)
[2020-09-01] MEDS: SENNOSIDES/DOCUSATE 8.6/50MG TABLET. PO SCH (07:57)
[2020-09-01] MEDS: MELOXICAM 7.5 MG TABLET PO SCH (07:57)
[2020-09-01] MEDS: APIXABAN 5 MG TABLET. PO SCH (07:57)
[2020-09-01] MEDS: ASPIRIN ENTERIC COATED 81 MG TABLET.DR. PO SCH (07:57)
[2020-09-01] MEDS: FERROUS SULFATE 325 MG TABLET. PO SCH (07:57)
[2020-09-01] MEDS: METOPROLOL SUCC 24HR ER 50 MG TAB.ER.24H. PO SCH (07:58)
[2020-09-01] MEDS: AMIODARONE HCL 200 MG TABLET. PO SCH (07:59)
[2020-09-01] MEDS: hydroCHLOROthiazide 25 MG TABLET PO SCH (08:01)
[2020-09-01] MEDS: LISINOPRIL 20 MG TABLET PO SCH (08:03)
[2020-09-01 08:05] VITALS: BP 109/68
--- NOTE | 2020-09-01 10:00 | NUR ---
Chrissie is more painful today. medicated with oxy x1. am care completed. medi warp doffer applied bilaterally . more comfortable and do not roll down. she continues to have good pulses and sensation and motion.
--- NOTE | 2020-09-01 12:30 | NUR ---
reviewed written discharge instructions with Chrissie. reviewed restrictions medications and follow up with Dr. Dubon. discussed care of incision restrictions to activities of daily living such as bathing driving and use of walker.
--- NOTE | 2020-09-01 15:08 | NUR ---
dismissed to home with . home with outpatient therapy. has walker and personal belongings
--- NOTE | 2020-09-02 15:20 | PATHOLOGY ---
[facility] Accession Number: [id number] . 01 Material submitted: . knee - RIGHT KNEE BONE AND TISSUE. Modifiers: right . 01 Clinical history: . DEGENERATIVE ARTHRITIS . 02 Diagnosis: Segments of bone and soft tissue, right total knee arthroplasty: - Advanced degenerative arthritis. . (JPM:mm; 09/01/2020) [facility] 09/01/2020 1602 Local . 02 Electronically signed: . Ruben Fowler MD, Pathologist NPI- [id number] . 01 Gross description: . The specimen is received in formalin, labeled "Chrissie Mckeon, right knee bone and tissue". Received are multiple segments of bone, including the tibial plateau, admixed with soft tissue and meniscus, measuring 10.8 x 10.7 x 3.2 cm in aggregate dimensions. The articular surfaces are smooth to granular in appearance with evidence of eburnation. The specimen is submitted representatively in cassette A1, following decalcification. ([facility]; 08/31/2020) [facility] 08/31/2020 1300 Local . 02 Pathologist provided ICD-10: M17.11 . 02 CPT . 013478, 707376 Specimen Comment: A courtesy copy of this report has been sent to [phone], [phone] Specimen Comment: [phone] Specimen Comment: Report sent to / DR MCGOVERN Performed at: 01 [facility] [address], [place] [id number] MD Dawood Srinivasan MD Phone: [phone] Performed at: 02 [facility] [address] [place], [place] [id number] MD Ruben Fowler MD Phone: [phone]
== END 2020-09-01 15:00 | disposition home or self-care (01) | DRG 470 ==
LOC: SURG 07:00 → 4 SOUTHEST 07:34 → UNDOADMOB 10:22 → 4 SOUTHEST 10:22 → OBSVTOIN 08-31 16:03
PROVIDERS: ADMIT Orthopaedic Surgery; ATTEND Orthopaedic Surgery
PROC: 0SRC0J9 Replacement of Right Knee Joint with Synthetic Substitute, Cemented, Open Approach (ICD-10-PCS; principal; 2020-08-30 08:30)
DX: M17.0 Bilateral primary osteoarthritis of knee (principal); E78.00 Pure hypercholesterolemia, unspecified; I10 Essential (primary) hypertension; I48.91 Unspecified atrial fibrillation; Z82.49 Family history of ischemic heart disease and other diseases of the circulatory system; Z90.710 Acquired absence of both cervix and uterus; Z90.49 Acquired absence of other specified parts of digestive tract; Z95.0 Presence of cardiac pacemaker; Z87.891 Personal history of nicotine dependence; Z82.5 Family history of asthma and other chronic lower respiratory diseases; Z80.3 Family history of malignant neoplasm of breast; Z88.2 Allergy status to sulfonamides
CPT/HCPCS: 36415; 73560; 85014; 85018; 86850; 86900; 86901; C1713; G0378; G0379; J0171; J0690; J0780; J1100; J1170; J1885; J2270; J2405; J2704; J2795; J3010; J3370; J3490; J7120; 97116-GP; 97150-GP; 97530-GO; 97530-GP; 97535-GO; C1769

== ENCOUNTER → 2021-02-01 | Day surgery (SDC) | payer MEDICARE ==
[~2021-02-01] VITALS: Ht 165.1 cm; Wt 164.0 kg
[~2021-02-01] MED LIST changes: -ACETAMINOPHEN 500 MG TABLET PO PRN; -GABAPENTIN 300 MG CAPSULE. PO PRN; -LIDOCAINE 1% PF 2 ML VIAL. ID PRN; +LIDOCAINE 2% PF 5 ML VIAL. ONE; -MELOXICAM 7.5 MG TABLET PO PRN; -MORPHINE SULFATE 5 MG, KETOROLAC 30MG VIAL 30 MG, ROPIVacaine 0.5% PF 60 ML, EPINEPHrin... INT ART ONE; -ONDANSETRON PF 4 MG/2 ML VIAL. IV PRN; +OXYC5TAB4 PO; -PROCHLORPERAZINE 10 MG/2 ML VIAL. IV PRN; +PROPOFOL 10 MG/ML (20ML) VIAL. IV ONE; +TRAM50TA PO; -TRANEXAMIC ACID 1,000 MG in IV NS 50ML -- 1ST BAG INJ ONE; -fentaNYL PF VIAL 100 MCG/2 ML VIAL IV PRN
[2021-02-01 07:53] VITALS: BP 140/75
[2021-02-01 09:28] VITALS: BP 109/62
--- NOTE | 2021-02-03 14:10 | PATHOLOGY ---
[facility] Accession Number: [id number] . 01 Material submitted: . PART A: gastrointestinal site - GASTRIC ULCER BIOPSY PART B: colon - ASCENDING COLON POLYP BIOPSY. Modifiers: ascending . 01 Clinical history: . WEIGHT LOSS RECTAL BLEEDING EGD/COLONOSCOPY . 02 Diagnosis: A. Gastric biopsies, gastric ulcer: - Reactive gastropathy showing focal mild acute and chronic inflammation. . B. Colon biopsies, ascending colon polyp: - Tubular adenoma. . (JPM:danelle; 02/03/2021) [facility] 02/03/2021 0935 Local . 02 Comment: Sections of the gastric ulcer biopsy reveal segments of gastric antral mucosa showing congestion, edema, foveolar hyperplasia, and focal mild acute and chronic inflammation. There is also a small segment of acute necroinflammatory exudate consistent with ulcer. A properly-controlled immunoperoxidase stain for Helicobacter pylori is negative for Helicobacter organisms. There is no evidence of malignancy. . Sections of the ascending colon biopsy reveal a tubular adenoma showing no high grade dysplasia or evidence of malignancy. . Special stain: Immunoperoxidase stain for Helicobacter on A1. . (JPM:danelle; 02/03/2021) . 02 Electronically signed: . Ruben Fowler MD, Pathologist NPI- [id number] . 01 Gross description: . A. The specimen is received in formalin, labeled "Chrissie Mckeon", "gastric ulcer biopsy". Received are multiple segments of pale mulligan soft tissue ranging in size from 0.1 cm to 0.3 cm. The specimen is entirely submitted in cassette A1. . B. The specimen is received in formalin, labeled "Chrissie Mckeon", "ascending colon polyp biopsy". Received are multiple segments of pale mulligan soft tissue ranging in size from 0.1 cm to 0.2 cm. The specimen is entirely submitted in cassette B1.([facility]; 02/02/2021) [facility] 02/02/2021 0834 Local . 02 Pathologist provided ICD-10: K29.00, K29.50, K31.9, D12.2 . 02 CPT . 035652, 682808, N81003 Specimen Comment: A courtesy copy of this report has been sent to [phone] Specimen Comment: Report sent to Performed at: 01 [facility] [address] [id number] MD Dawood Srinivasan MD Phone: [phone] Performed at: [address] [facility] [address] [place] [id number] MD Ruben Fowler MD Phone: [phone]
== END | disposition home or self-care (01) ==
LOC: SURG 07:16
PROVIDERS: ATTEND Internal Medicine Gastroenterology
DX: K92.1 Melena (principal); R63.4 Abnormal weight loss; D12.2 Benign neoplasm of ascending colon; K57.30 Diverticulosis of large intestine without perforation or abscess without bleeding; K64.0 First degree hemorrhoids; K25.9 Gastric ulcer, unspecified as acute or chronic, without hemorrhage or perforation; K29.50 Unspecified chronic gastritis without bleeding; K63.89 Other specified diseases of intestine; K31.89 Other diseases of stomach and duodenum; I48.91 Unspecified atrial fibrillation; I10 Essential (primary) hypertension; E78.00 Pure hypercholesterolemia, unspecified; M19.90 Unspecified osteoarthritis, unspecified site; Z20.822 Contact with and (suspected) exposure to COVID-19; Z90.710 Acquired absence of both cervix and uterus; Z98.890 Other specified postprocedural states; Z79.82 Long term (current) use of aspirin; Z79.899 Other long term (current) drug therapy; Z87.891 Personal history of nicotine dependence; Z88.2 Allergy status to sulfonamides
CPT/HCPCS: 43239; 45380; 87426; 88305; 88342; J2704

== ENCOUNTER → 2021-04-26 | Day surgery (SDC) | payer MEDICARE ==
[~2021-04-26] MED LIST changes: -DOCU-150 PO; +DOCU-158 PO; -LIDOCAINE 2% PF 5 ML VIAL. ONE; +OMEP40CA7 PO
[2021-04-26 06:22] VITALS: BP 141/67
[2021-04-26 07:32] VITALS: BP 111/67
--- NOTE | 2021-04-26 10:57 | HP ---
ADMIT DATE: 04/26/2021 UPDATED HISTORY AND PHYSICAL REASON: Gastric ulcer followup. HISTORY OF PRESENT ILLNESS: A 75-year-old female whose past medical history is significant for organic heart disease, hypertension, hyperlipidemia, is seen for gastric ulcer followup, previously diagnosed. Biopsies are unrevealing for H. pylori or malignancy. She has been on omeprazole in the interim. Had no pain, dysphagia or change in appetite. She is without additional complaints presently. PAST MEDICAL HISTORY: Significant for heart disease, hypertension, history of colonic polyps, hyperlipidemia, hypothyroidism. ALLERGIES: SULFA. MEDICATIONS: Eliquis, diazepam, docusate, levothyroxine, lisinopril, hydrochlorothiazide, metoprolol, multivitamin, omeprazole, simvastatin. FAMILY HISTORY: Significant for breast cancer with her sister, [place] with her mother and hypertension. PAST SURGICAL HISTORY: Significant for appendectomy, joint replacement, hysterectomy, tonsillectomy, and pacemaker placement. REVIEW OF SYSTEMS: Per records. PHYSICAL EXAMINATION: GENERAL: Reveals a well-nourished, well-developed female who is alert, cooperative, in no acute distress. VITAL SIGNS: Temperature is 97.2, pulse 86, respiratory rate 20. LUNGS: Clear. CARDIOVASCULAR: Reveals an S1, S2, without S3, S4 or appreciable murmur. ABDOMEN: Reveals a soft abdomen. Normal bowel sounds. No appreciable hepatosplenomegaly. EXTREMITIES: Reveals no cyanosis, clubbing or edema. IMPRESSION AND PLAN: Gastric ulcer. EGD with surveillance for biopsies and complete healing is recommended as 2-4% of gastric ulcers are early gastric cancers. Risks and benefits have been previously discussed. The patient is willing to proceed at this time. SARAH DR: Pamela TID: [id number]
== END | disposition home or self-care (01) ==
LOC: ENDOS 06:03
PROVIDERS: ATTEND Internal Medicine Gastroenterology
DX: K25.7 Chronic gastric ulcer without hemorrhage or perforation (principal); K29.50 Unspecified chronic gastritis without bleeding; K31.89 Other diseases of stomach and duodenum; I11.9 Hypertensive heart disease without heart failure; E03.9 Hypothyroidism, unspecified; E78.00 Pure hypercholesterolemia, unspecified; I48.91 Unspecified atrial fibrillation; K21.9 Gastro-esophageal reflux disease without esophagitis; E66.9 Obesity, unspecified; M19.90 Unspecified osteoarthritis, unspecified site; Z87.891 Personal history of nicotine dependence; Z86.010 Personal history of colon polyps; Z90.710 Acquired absence of both cervix and uterus; Z98.890 Other specified postprocedural states; Z80.3 Family history of malignant neoplasm of breast; Z82.49 Family history of ischemic heart disease and other diseases of the circulatory system; Z79.899 Other long term (current) drug therapy; Z88.2 Allergy status to sulfonamides
CPT/HCPCS: 43235; J2704

== ENCOUNTER → 2021-06-06 | Outpatient (CLI) | payer MEDICARE ==
[2021-04-26 07:32] VITALS: BP 111/67
[~2021-06-06] MED LIST changes: -IV RINGERS,LACTATED 1000ML 1,000 ML IV SCH; -PROPOFOL 10 MG/ML (20ML) VIAL. IV ONE
--- NOTE | 2021-06-06 15:31 | RAD ---
MG BILAT SCREEN+EARL 06/06/2021 10:00 AM INDICATION: Asymptomatic screening mammogram. COMPARISON: 05/18/2028, 05/04/2019 TECHNIQUE: 3D tomosynthesis was performed in CC and MLO projections. 2D views were obtained from the 3D data. CAD was utilized as needed. FINDINGS: Breast density: Category B: There are scattered areas of fibroglandular density. Right breast: Focal asymmetry identified within the medial right breast at mid anterior depth, approx imately 4 cm from the nipple. Spot compression CC and MLO views as well as possible ultrasound is rec ommended. Additional focal asymmetry identified in the upper-outer right breast at posterior depth, a pproximately 8-8.5 centimeters from the nipple. Further evaluation with spot compression CC and MLO v iews as well as possible ultrasound is recommended. Left breast: There are no suspicious microcalcifications, masses or areas of architectural distortion . IMPRESSION: 1. Incomplete right mammogram. Additional views are recommended as detailed above. 2. Negative left mammogram. BI-RADS category: 0; Incomplete Recommendations: Recommend additional imaging for which the patient will need to be called back. Electronically signed by: Noni Zapien MD (06/06/2021 3:28 PM) [id number]
== END ==
LOC: MAMMO 09:41
PROVIDERS: ATTEND Family Medicine
DX: Z12.31 Encounter for screening mammogram for malignant neoplasm of breast (principal)
CPT/HCPCS: 77063; 77067

== ENCOUNTER → 2021-06-07 | Outpatient (CLI) | payer MEDICARE ==
[2021-04-26 07:32] VITALS: BP 111/67
--- NOTE | 2021-06-07 15:14 | RAD ---
MG DIAGNOSTICUNILAT MAMMO 06/07/2021 2:31 PM INDICATION: Focal asymmetry of the right breast. COMPARISON: Mammogram 06/06/2021, 05/18/2020 TECHNIQUE: Spot compression CC and MLO views of the right breast were obtained. FINDINGS: Right breast: No residual microcalcifications, masses or areas of architectural distortion with spot compression. Previously seen focal asymmetry not visualized upon compression. Findings favor overlapp ing fibroglandular tissue. IMPRESSION: Negative right mammogram. BI-RADS category: 1; Negative Recommendations: Recommend annual screening mammography in one year. Electronically signed by: Noni Zapien MD (06/07/2021 3:12 PM) [id number]
== END ==
LOC: MAMMO 14:24
PROVIDERS: ATTEND Family Medicine
DX: R92.8 Other abnormal and inconclusive findings on diagnostic imaging of breast (principal)
CPT/HCPCS: 77065

== ENCOUNTER → 2021-07-17 | Outpatient (CLI) | payer MEDICARE ==
[2021-04-26 07:32] VITALS: BP 111/67
[~2021-07-17] MED LIST changes: +AMIO200T53 PO; -AMIO200T6 PO; -LISI1TAB20 PO; +LISI1TAB39 PO
--- NOTE | 2021-07-17 11:29 | CARD ---
MR#: [id number] Date of Study: 07/17/2021 Ordering Physician: CHRIS BRUCE, Referring Physician: CHRIS BRUCE, Tech: Cathleen Gould [facility] APPROVED REPORT EXAM: Two-dimensional and M-mode echocardiogram with Doppler and color Doppler. Other Information Quality : AverageHR: 95bpm INDICATION Atrial Fibrillation Surgery/Intervention Pacemaker: Date: 2019 RISK FACTORS Hypertension Hyperlipidemia 2D DIMENSIONS RVDd3.4 (2.9-3.5cm)Left Atrium(2D)3.9 (1.6-4.0cm) IVSd1.0 (0.7-1.1cm)Aortic Root(2D)2.9 (2.0-3.7cm) LVDd4.8 (3.9-5.9cm)LVOT Diameter2.0 (1.8-2.4cm) PWd0.9 (0.7-1.1cm)LVDs3.2 (2.5-4.0cm) FS (%) 33.5 %SV67.7 ml LVEF(%)62.1 (>50%) Aortic Valve AoV Peak Marc.110.9cm/sAoV VTI22.5cm AO Peak GR.4.9mmHgLVOT Peak Marc.97.0cm/s LVOT VTI 17.38cmAO Mean GR.3mmHg RAQUEL (VMAX)2.73jr4BIY (VTI)2.49cm2 Mitral Valve MV E Rlkbzjzg846.2cm/sMV E Peak Gr.104mmHg MV DECEL [id number] E Mean Gr.2mmHg MV [id number] (PHT)6.57cm2 TDI E/Lateral E'8.0E/Medial E'9.7 Pulmonary Valve PV Peak Qrsplmcx72.4cm/sPV Peak Grad.3mmHg Tricuspid Valve TR P. Baprceeu215sh/sRAP [id number] TR Peak Gr.31lqSqBRRH02tmPk LEFT VENTRICLE The left ventricle is normal size. There is normal left ventricular wall thickness. The left ventricu lar systolic function is normal. The Ejection Fraction is 55-60%. There is normal LV segmental wall m otion. Diastology indeterminate due to atrial fibrallation. RIGHT VENTRICLE The right ventricle is normal size. There is normal right ventricular wall thickness. The right ventr icular systolic function is normal. There is a pacemaker lead in the right ventricle. ATRIA The left atrium is moderately dilated. The right atrium is mildly dilated. The interatrial septum is intact with no evidence for an atrial septal defect or patent foramen ovale as noted on 2-D or Dopple r imaging. AORTIC VALVE The aortic valve is thickened but opens well. Doppler and Color Flow revealed trace aortic regurgitat ion. There is no significant aortic valvular stenosis. Calculated aortic valve area is 2.01 cm2 with maximum pressure gradient of 8 mmHg and mean pressure gradient of 5 mmHg. MITRAL VALVE The mitral valve is normal in structure and function. There is no evidence of mitral valve prolapse. There is no mitral valve stenosis with a mean gradient of 1.8 mmHg. Doppler and Color-flow revealed m ild mitral regurgitation. TRICUSPID VALVE The tricuspid valve is normal in structure and function. Doppler and Color Flow revealed trace tricus pid regurgitation with an estimated PAP of 26 mmHg. There is no tricuspid valve prolapse or vegetatio n. PULMONIC VALVE The pulmonic valve is not well visualized. Doppler and Color Flow revealed trace pulmonic valvular re gurgitation. GREAT VESSELS The aortic root is normal in size. The ascending aorta is Mildly dilated. The IVC is normal in size a nd collapses >50% with inspiration. PERICARDIAL EFFUSION There is no evidence of significant pericardial effusion. Critical Notification Critical Value: No <Conclusion> The left ventricular systolic function is normal. The Ejection Fraction is 55-60%. There is normal LV segmental wall motion. Pacer lead noted RA/RV. The left atrium is moderately dilated. Mild mitral regurgitation. Trace tricuspid regurgitation with an estimated PAP of 26 mmHg. There is no evidence of significant pericardial effusion. Signed by : Chris Bruce, Electronically Approved : 07/17/2021 11:29:11
== END ==
LOC: ECHO 09:44
PROVIDERS: ATTEND Internal Medicine Cardiovascular Disease
DX: I48.21 Permanent atrial fibrillation (principal)
CPT/HCPCS: 93306

== ENCOUNTER → 2022-01-24 | Outpatient (CLI) | payer MEDICARE ==
--- NOTE | 2022-01-24 14:08 | NUR ---
Dakota with [employer] here to adjust patient's pacemaker for study. Patient has auto MRI feature and her pacemaker will return to her original settings after study is complete. Pulse rate=90 for study.
[2022-01-24 14:11] VITALS: BP 111/75
[2022-01-24 14:15] VITALS: BP 126/84
[2022-01-24 14:21] VITALS: BP 106/69
--- NOTE | 2022-01-24 14:25 | NUR ---
Patient's vital signs remained stable throughout study and no problems noted.
--- NOTE | 2022-01-24 14:58 | RAD ---
Examination: MRI left knee without contrast, barrera and nephew protocol HISTORY: History of left knee osteoarthritis COMPARISON: None available FINDINGS: The anterior, posterior cruciate ligament appears intact. There is attenuated appearance of the body of the medial, lateral meniscus likely degenerative tears. Extensor mechanism is intact. Severe joint space loss, medial, lateral, and patellofemoral compartments. Moderate knee joint effusion. IMPRESSION: Severe tricompartmental degenerative changes. Electronically signed by: Florin Strong MD (01/24/2022 2:55 PM) [id number]
--- NOTE | 2022-01-24 15:05 | RAD ---
EXAM: Left lower extremity bone length study. HISTORY: Arthritis. COMPARISON: 12/19/2021 FINDINGS: Frontal views of the left lower extremity are obtained. There is severe medial compartment joint space narrowing, subchondral sclerosis and spurring. There is moderate lateral compartment spur ring. There is mild genu varus. There is no suspicious osseous lesion. There is slight calcification of the acetabular labrum. IMPRESSION: 1. Severe medial compartment predominant osteoarthritis of the left knee with slight genu varus. 2. Minimal right hip osteoarthritis. Electronically signed by: Shanthi Lazaro MD (01/24/2022 3:03 PM) [id number]
== END ==
LOC: MRI 13:25
PROVIDERS: ATTEND Orthopaedic Surgery
DX: M17.12 Unilateral primary osteoarthritis, left knee (principal); M25.462 Effusion, left knee; M16.11 Unilateral primary osteoarthritis, right hip; M21.162 Varus deformity, not elsewhere classified, left knee; M76.892 Other specified enthesopathies of left lower limb, excluding foot
CPT/HCPCS: 73721; 77073